=== PATIENT | male | born 1955 | race Asian ===

== ENCOUNTER 2017-12-24 12:21 | Emergency (ER) | payer OTHER ==
[~2017-12-24] VITALS: Ht 167.6 cm; Wt 68.0 kg
[~2017-12-24 12:21] MED LIST: ASPI-COR81 M3 PO; BENADRYL ALLERG25 M1 PO; ZOC20 PO
[2017-12-24 12:25] VITALS: Ht 167.6 cm; Wt 68.0 kg
[2017-12-24 14:18] LABS: BASOPHIL % 0.8 % (0-2); PLATELET COUNT 239 x10^3mcL (130-400); RED CELL DISTRIBUTION WIDTH 14.2 % (11.5-14.5)
[2017-12-24 14:33] LABS: CALCIUM 8.8 mg/dL (8.5-10.1); CARBON DIOXIDE 26.2 mmol/L (21-32); CHLORIDE SERUM 102 mmol/L (98-107); CREATININE SERUM 0.7 mg/dL (0.7-1.3); GFR1 > 60 mL/min; GLUCOSE SERUM 122 mg/dL (74-106); POTASSIUM SERUM 3.4 mmol/L (3.5-5.1); SODIUM SERUM 138 mmol/L (136-145)
[2017-12-24 14:47] LABS: ALBUMIN 3.9 g/dL (3.4-5.0); ALKALINE PHOSPHATASE 61 U/L (46-116); ALT/SGPT 38 U/L (16-63); AST/SGOT 25 U/L (15-37); BILIRUBIN TOTAL 0.3 mg/dL (0.20-1.00); TOTAL PROTEIN, SERUM 7.6 g/dL (6.4-8.2)
[2017-12-24 15:34] LABS: AMPHETAMINE QUAL UR NONE DETECTED (NEG <=1000)
[2017-12-24 15:38] VITALS: BP 120/86
== END 2017-12-24 15:55 | disposition home or self-care (01) ==
LOC: ED 12:21
PROVIDERS: Emergency Medicine
DX: R07.9 Chest pain, unspecified (principal); I10 Essential (primary) hypertension; E78.5 Hyperlipidemia, unspecified
CPT/HCPCS: 83880; 85378; J1885; Q0092

== ENCOUNTER 2018-11-04 13:47 | Emergency (ER) | payer OTHER ==
[~2018-11-04] VITALS: Ht 160 cm; Wt 58.1 kg
[2018-11-04 13:52] VITALS: Ht 160 cm; Wt 58.1 kg
[2018-11-04] MEDS ORDERED: REG10 PO (15:35)
[2018-11-04] MEDS ORDERED: PROMETHAZINE HC50 MG PO (15:35)
[2018-11-04] MEDS ORDERED: NEXIUM20 MG PO ×2 (15:37→15:38)
[2018-11-04] MEDS ORDERED: ZOF4 PO (15:37)
[2018-11-04] MEDS ORDERED: BACTRIM1 TAB PO (15:39)
[2018-11-04 16:38] LABS: BASOPHIL % 0.4 % (0-2); PLATELET COUNT 232 x10^3mcL (130-400); RED CELL DISTRIBUTION WIDTH 13.3 % (11.5-14.5)
[2018-11-04 16:42] LABS: CALCIUM 8.8 mg/dL (8.5-10.1); CARBON DIOXIDE 24.3 mmol/L (21-32); CHLORIDE SERUM 97 mmol/L (98-107); CREATININE SERUM 0.8 mg/dL (0.7-1.3); GFR1 > 60 mL/min; GLUCOSE SERUM 150 mg/dL (74-106); POTASSIUM SERUM 3.1 mmol/L (3.5-5.1); SODIUM SERUM 132 mmol/L (136-145)
[2018-11-04 16:46] LABS: UA SPECIFIC GRAVITY <=1.005 (1.005-1.035); microscopic required? YES; urine erythrocyte TRACE (NEGATIVE)
[2018-11-04 16:53] LABS: ALBUMIN 4.1 g/dL (3.4-5.0); ALKALINE PHOSPHATASE 59 U/L (46-116); ALT/SGPT 51 U/L (16-63); AMYLASE 70 U/L (25-115); AST/SGOT 28 U/L (15-37); BILIRUBIN TOTAL 0.2 mg/dL (0.20-1.00); CHOLESTEROL 142 mg/dL (<200); HDL CHOLESTEROL 42 mg/dL (40-60); LIPASE 120 IU/L (73-393); T4(THYROXINE) 8.8 ug/dL (4.7-13.3); TOTAL PROTEIN, SERUM 8.1 g/dL (6.4-8.2)
[2018-11-04 16:55] LABS: AMPHETAMINE QUAL UR NONE DETECTED (See below)
[2018-11-04 17:40] VITALS: BP 131/73
== END 2018-11-04 18:25 | disposition home or self-care (01) ==
LOC: ED 13:47
PROVIDERS: Emergency Medicine
DX: I45.10 Unspecified right bundle-branch block (principal); R53.1 Weakness; I10 Essential (primary) hypertension; E78.00 Pure hypercholesterolemia, unspecified; F17.200 Nicotine dependence, unspecified, uncomplicated
CPT/HCPCS: 36415; 83880; Q0092